=== PATIENT | female | born 1970 | race Caucasian/White ===

== ENCOUNTER 2023-07-15 15:26 | Outpatient (CLI) | payer OTHER, SELFPAY ==
--- NOTE | 2023-07-15 | XRR_ITS ---
PROCEDURE INFORMATION: Exam: XR Chest Exam date and time: 07/15/2023 3:53 PM Age: 52 years old Clinical indication: Other: Dysphagia TECHNIQUE: Imaging protocol: Radiologic exam of the chest. Views: 2 views. COMPARISON: No relevant prior studies available. FINDINGS: Lungs: Unremarkable. No consolidation. Pleural spaces: Unremarkable. No pleural effusion. No pneumothorax. Heart/Mediastinum: Unremarkable. No cardiomegaly. Bones/joints: Unremarkable. XR/XR chest 2V* [id number] IMPRESSION: No acute findings.
[2023-07-15 18:00] LABS: Thyroid Stimulating Hormone 0.98 uIU/mL (0.27-4.20)
[2023-07-15 21:38] LABS: Free T4 Free Thyroxine 1.06 ng/dL (0.82-1.77)
== END 2023-07-15 15:27 | disposition home or self-care (01) ==
PROVIDERS: PCP Specialist; Visit Provider Specialist
DX: R13.10 Dysphagia, unspecified (principal)
CPT/HCPCS: 36415; 71046; 84439; 84443

== ENCOUNTER 2023-08-12 09:25 | Outpatient (CLI) | payer OTHER, SELFPAY ==
--- NOTE | 2023-08-12 09:37 | FL_ITS ---
WS: [id number] Exam: FL barium swallow [id number] Date/Time of Exam: 08/12/2023 10:24 AM Reason For Exam: DYSPHAGIA Fluoroscopy time: minutes # of spot films: Oropharyngeal swallowing function was normal. There are very mild extrinsic posterior compressions al mathew the cervical esophagus at the C5-6 and C6-7 levels secondary to anterior osteophytes and probable ligamentous thickening. No intrinsic esophageal mass or significant stricture was noted. Normal esop hageal motility was identified. The esophagus is not displaced. No hiatal hernia or gastroesophageal reflux was noted. IMPRESSION: 1. No intrinsic esophageal mass or stricture. 2. Mild posterior extrinsic compression along the cervical esophagus at C5-6 and C6-7 secondary to an terior osteophytes and probable ligamentous thickening. This does not appear to cause significant lum inal narrowing. 3. The esophagus was otherwise normal.
--- NOTE | 2023-08-12 09:47 | CTR_ITS ---
PROCEDURE INFORMATION: Exam: CT Neck With Contrast Exam date and time: 08/12/2023 10:14 AM Age: 52 years old Clinical indication: Dysphagia / difficulty swallowing; Patient HX: Patient states after eating, drinkning, or taking pills it feels like something gets stuck. Difficulty swallowing, hoarse voice. SOB TECHNIQUE: Imaging protocol: Computed tomography of the neck with contrast. Post processing is performed, and sagittal and coronal CT images are reconstructed of the entire imaged area. Radiation optimization: All CT scans at this facility use at least one of these dose optimization techniques: automated exposure control; mA and/or kV adjustment per patient size (includes targeted exams where dose is matched to clinical indication); or iterative reconstruction. Contrast material: OMNI 350; Contrast volume: 95 ml; Contrast route: INTRAVENOUS (IV); REPORTING DATA: Count of CT and Cardiac NM exams in prior 12 months: This patient has received 0 known CTs and 0 known cardiac nuclear medicine studies in the 12 months prior to the current study. COMPARISON: CR XR chest 2V* [id number] 07/15/2023 3:53 PM RADIATION DOSE METRICS: Total DLP (mGy-cm): 190.66 FINDINGS: Mastoid air cells: Clear visualized paranasal sinuses and mastoid air cells. Clear middle ear cavities bilaterally. Pharynx: Unremarkable. No significant tonsillar enlargement. Larynx: Unremarkable. Epiglottis is normal. Prevertebral and retropharyngeal spaces: Unremarkable. Salivary glands: Normal. Glands are normal in size. Thyroid: Bilateral thyroid nodules. Lymph nodes: Unremarkable. No lymphadenopathy. Trachea: Visualized trachea is unremarkable. Lungs: Unremarkable as visualized. Bones/joints: Moderate spondylitic changes in the lower cervical spine. Otherwise, unremarkable. No acute fracture. Vasculature: Unremarkable vascular structures Soft tissues: Unremarkable. No significant soft tissue swelling. CT/CT neck w con* [id number] IMPRESSION: 1. Bilateral thyroid nodules. An elective thyroid ultrasound is recommended for further evaluation. 2. Moderate spondylitic changes in the lower cervical spine. 3. Otherwise, negative contrast-enhanced CT of the neck. COMMENTS: Consistent with the [employer]'s Incidental Findings Committee white paper (J Am Keya Radiol 2015): In patients aged 35 years and older with an incidental thyroid nodule equal to or greater than 1.[address], MRI or extrathyroidal US, further evaluation with dedicated thyroid US is recommended for patients with normal life expectancy and without comorbidities. For smaller nodules without suspicious features, no further evaluation or follow up is recommended.
[2023-08-12] MEDS: iohexol 350 mg/mL 500 mL Btl (per mL) IV (10:22)
== END 2023-08-12 09:26 | disposition home or self-care (01) ==
PROVIDERS: PCP Specialist; Visit Provider Specialist
DX: R13.10 Dysphagia, unspecified (principal); R06.02 Shortness of breath; E04.2 Nontoxic multinodular goiter; M47.812 Spondylosis without myelopathy or radiculopathy, cervical region; M25.78 Osteophyte, vertebrae
CPT/HCPCS: 70491; 74220; Q9967

== ENCOUNTER 2023-08-19 10:21 | Outpatient (CLI) | payer OTHER, SELFPAY ==
--- NOTE | 2023-08-19 | FL_ITS ---
FL barium swallow modifd [id number] REASON FOR EXAM: Other dysphagia FLUOROSCOPY TIME: 2min 59sec # OF SPOT FILMS: None TECHNIQUE: Procedure supervised and performed by the speech therapy department. The swallowing of barium of varying consistencies was performed with the patient in the sitting upright position, lateral projection. The swallowing was monitored fluoroscopically and video recorded. FINDINGS: Detailed analysis and report of the swallowing will be rendered by the speech therapy department. IMPRESSION: Modified barium swallow as above. MTDD
== END 2023-08-19 10:22 | disposition home or self-care (01) ==
PROVIDERS: PCP Specialist; Visit Provider Specialist
DX: R13.19 Other dysphagia (principal)
CPT/HCPCS: 74230; 92611